=== PATIENT | female | born 1930 | race Caucasian/White ===

== ENCOUNTER → 2016-08-03 | Outpatient (CLI) | payer MEDICARE, BC ==
--- NOTE | 2016-08-04 07:23 | WWHP ---
DATE OF SERVICE: 08/03/2016 CHIEF COMPLAINT: The patient is here for her routine gynecologic exam and mammogram. HPI: This is an 85-year-old G5, P5 with an LMP of 1973, who is status post SATURNINO/BSO in 2007 for stage IB grade 3 uterine cancer. She is without gynecologic complaints. PAST MEDICAL HISTORY: Endometrial uterine cancer in 2007 and a status post SATURNINO/BSO with radiation therapy. Also history of chronic hypertension, elevated cholesterol and TMJ. MEDICATIONS: 1. Lipitor 5 mg daily. 2. Aspirin 81 mg daily. 3. Hyzaar 1 mg daily. 4. VESIcare 1 daily. ALLERGIES: No known drug allergies. 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 Family history is unchanged from the 2015 H&P. SOCIAL HISTORY: She denies tobacco, alcohol, and drug use. She has been since 1981 and is retired. REVIEW OF SYSTEMS: Weight has been stable. She denies respiratory or cardiac problems. GI: Occasional constipation. She denies maltreatment. She states she occasionally has lost her balance and fallen because of this. : She continues to have some bladder issues with urinary leakage and sees Dr. Fay, the urologist for this. PHYSICAL EXAM: Blood pressure 168/74. Height 5 feet 2 inches. Weight 138 pounds. Temperature 97.8, pulse 72. This is a well-developed, well-nourished white female who is alert and oriented x3 in no acute distress. HEENT is within normal limits. NECK: Supple without mass or thyromegaly. CHEST AND LUNGS: Clear to auscultation. HEART: Regular rate. The rhythm is regular except for one added beat consistent with a PVC over about a 15 second period. She is going Through a cardiac workup with Dr. Angel. Breast exam is negative for mass or tenderness. Axillary exam is negative for adenopathy. BACK: Negative for CVA tenderness. ABDOMEN: Soft, nontender, without palpable masses. PELVIC EXAM: External genitalia reveals moderate atrophy without lesions. Vagina reveals moderate to severe atrophy with shortening of the vagina. The vaginal length is about 8 to 9 cm. There are no lesions noted, cuff is well supported. There is no evidence of prolapse. Bimanual exam is negative for mass or tenderness. Rectovaginal exam is negative for mass or tenderness and is negative for occult blood. EXTREMITIES: Nontender. IMPRESSION: An 85-year-old menopausal female, status post total abdominal hysterectomy/bilateral salpingo-oophorectomy for stage IB grade 3 cancer in 2007. There is no evidence of recurrence. PLAN: 1. Pap smear of the vaginal cuff was performed. 2. Self breast examination was discussed. 3. Mammogram will be done today. 4. I have recommended screening colonoscopy since she has never had this done. Dr. Garcias's card was given to the patient for this. 5. We have discussed her occasional loss of balance and falling. I have advised her to follow up with her primary care physician and to talk to him about possible neurology referral. 6. Osteoporosis prevention was discussed. She states her last bone density test was about 10 years ago. An order slip was given to her for a bone density test. 7. 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 8. She will return in one year. GOPI
--- NOTE | 2016-08-05 10:43 | MM ---
Reason for exam: screening (asymptomatic). Last mammogram was performed 1 year ago. History: Patient is postmenopausal and has history of other cancer at age 76. Family history of breast cancer in daughter at age 39. Physical Findings: A clinical breast exam by your physician is recommended on an annual basis and results should be correlated with mammographic findings. MG 3D Screening Mammo W/Cad Bilateral CC and MLO view(s) were taken. Prior study comparison: July 30, 2015, bilateral MG 3d screening mammo w/cad. February 26, 2013, mammogram, performed at [facility]. The breast tissue is heterogeneously dense. This may lower the sensitivity of mammography. Finding: There is a typically benign equal density (isodense), indistinct irregular mass in the upper outer quadrant, subareolar position of the right breast. Previous mammotome biopsy in the right breast. ASSESSMENT: Probably benign, BI-RAD 3 RECOMMENDATION: Follow-up diagnostic mammogram of the right breast in 6 months.
== END | disposition home or self-care (01) ==
LOC: WWCWWP 11:29
PROVIDERS: ATTEND Obstetrics & Gynecology
DX: Z12.31 Encounter for screening mammogram for malignant neoplasm of breast (principal)
CPT/HCPCS: 77063; G0202

== ENCOUNTER → 2017-02-15 | Outpatient (CLI) | payer MEDICARE, BC ==
--- NOTE | 2017-02-15 13:49 | MM ---
Reason for exam: follow-up at short interval from prior study. Last mammogram was performed 6 months ago. History: Patient is postmenopausal and has history of other cancer at age 76. Family history of breast cancer in daughter at age 39. Physical Findings: Nurse did not find any significant physical abnormalities on exam. MG 3D Diag Mammo W/Cad RT CC and MLO view(s) were taken of the right breast. Prior study comparison: August 03, 2016, bilateral MG 3d screening mammo w/cad. July 30, 2015, bilateral MG 3d screening mammo w/cad. There are scattered fibroglandular densities. Previous mammotome biopsy within the right breast. The questioned focal asymmetry anterior upper outer quadrant is less defined from 08/03/16. Additional 6 month follow up is recommended. These results were verbally communicated with the patient and result sheet given to the patient on 02/15/17. ASSESSMENT: Probably benign, BI-RAD 3 RECOMMENDATION: Follow-up diagnostic mammogram of both breasts in 6 months. Back on schedule.
== END | disposition home or self-care (01) ==
LOC: RADMAMWWP 12:49
PROVIDERS: ATTEND Obstetrics & Gynecology
DX: R92.8 Other abnormal and inconclusive findings on diagnostic imaging of breast (principal)
CPT/HCPCS: G0206; G0279

== ENCOUNTER → 2017-08-16 | Outpatient (CLI) | payer MEDICARE, BC ==
[2017-08-16 11:29] VITALS: BP 138/73; PULSE 77; RESP 18; TEMP 97.9; BMI 25.2
--- NOTE | 2017-08-16 12:00 | P.HPOB ---
History of Present Illness H&P Date: 08/16/17 Chief Complaint: The patient is here for her routine gynecologic exam and mammogram. This is an 86-year-old with an LMP of 1972. She is status post SATURNINO BSO in 2007 for stage IB grade 3 uterine cancer. She is without gynecologic complaints. Review of Systems Weight has been stable. She denies respiratory, cardiac and G.I. problems. She denies maltreatment. She has fallen about 3 times this year. She has had issues with occasional loss of balance. : she she does have urinary leakage with sneezing. She has seen Dr. Morales for this. Past Medical History Past Medical History: Cancer (Endometrial cancer stage IB grade 3 in 2007.), Hyperlipidemia, Hypertension Additional Past Medical History / Comment(s): endometrial cancer. TMJ. 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 She has no history of STDs. History of Any Multi-Drug Resistant Organisms: None Reported Past Surgical History: Bowel Resection, Hysterectomy (SATURNINO BSO in 2007) Additional Past Surgical History / Comment(s): mastoidectomy. Oral surgery. Past Anesthesia/Blood Transfusion Reactions: No Reported Reaction Smoking Status: Never smoker Past Alcohol Use History: None Reported Past Drug Use History: None Reported Additional History: She has been since 1981 and is retired. - Past Family History Father Family Medical History: Cancer (colon) Additional Family Medical History / Comment(s): colon CA Daughter(s) History Unknown: Yes Family Medical History: Cancer (Breast and uterine) Additional Family Medical History / Comment(s): Breast Cancer Mother Family Medical History: Myocardial Infarction ([place]) Medications and Allergies Home Medications Medication Instructions Recorded Confirmed Type Aspirin [Children's Aspirin] 81 mg PO DAILY 08/16/17 08/16/17 History Atorvastatin [Lipitor] 10 mg PO HS 08/16/17 08/16/17 History Losartan/Hydrochlorothiazide 1 each PO DAILY 08/16/17 08/16/17 History [Hyzaar 100-12.5 Tablet] Allergies Allergy/AdvReac Type Severity Reaction Status Date / Time No Known Allergies Allergy Verified 08/16/17 11:55 Exam - Vital Signs Vital signs: Vital Signs Temp Pulse Resp BP 08/16/17 11:15 97.9 F 77 18 138/73 Intake and Output 08/15/17 08/16/17 08/16/17 22:59 06:59 14:59 Other: Weight 62.596 kg Height 5'2", BMI 25.2. This is a well-developed well-nourished white female who is alert and oriented times 3 in no acute distress. HEENT: Within normal limits. NECK: Supple without mass or thyromegaly. CHEST AND LUNGS: Clear to auscultation. HEART: Irregularly irregular rhythm. BREASTS: Are without mass or discharge. AXILLARY EXAM: Negative for adenopathy. BACK: Negative for CVA tenderness. ABDOMEN: Soft, nontender, without palpable masses. PELVIC EXAM: External genitalia appears normal with moderate atrophy. Vagina appears normal with moderate atrophy. There is shortening of the vagina length is approximately 7 cm. There is no evidence of prolapse. Bimanual examination is negative for mass or tenderness. RECTAL EXAM: Rectovaginal exam is negative for mass or tenderness and is negative for occult blood. EXTREMITIES: Nontender. IMPRESSION: 1. 86-year-old menopausal female status post SATURNINO BSO for endometrial cancer stage IB grade 3 in 2007. There is no evidence of recurrence. 2. Irregularly irregular heartbeat, possible atrial fibrillation. PLAN: 1. Pap smear was deferred. This will be done every 2 years because of her history of endometrial cancer. Last year's Pap smear was negative. 2. Self breast awareness was discussed. 3. Diagnostic mammogram will be done today because of her previous abnormal mammogram. 4. 12 lead EKG will be done today and her potline monitor, Dr. Angel will be notified. 5. I have recommended screening colonoscopy since she has never had this done. She will discuss this with her primary care physician. She has refused this in the past. 6. She will discuss her episodes of falling and loss of balance with her primary care physician. She understands that the irregular heartbeat noted today can possibly be related to this. 7. She will return in one year.
--- NOTE | 2017-08-16 13:11 | P.PN ---
Progress Note - Text Progress Note Date: 08/16/17 An irregular heart rhythm was noted at the patient's annual exam today. EKG was done. The EKG showed sinus rhythm with frequent and consecutive PVCs and fusion complexes with a left bundle branch block. The EKG was faxed to Dr. 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 I spoke with Dr. Angel by phone and he has asked that she go to his office now for additional testing. This was explained to the patient who states she will go there now. She is currently alert and oriented and asymptomatic.
--- NOTE | 2017-08-19 13:46 | MM ---
Reason for exam: follow-up at short interval from prior study. Last mammogram was performed 6 months ago. History: Patient is postmenopausal and has history of other cancer at age 76. Family history of breast cancer in daughter at age 39. Physical Findings: Dr. Cortez did not find any significant physical abnormalities on exam. MG 3D Diag Mammo W/Cad BRANDON Bilateral CC and MLO view(s) were taken. XCCL view(s) were taken of the left breast. Prior study comparison: February 15, 2017, right breast MG 3d diag mammo w/cad RT. August 03, 2016, bilateral MG 3d screening mammo w/cad. There are scattered fibroglandular densities. Previous mammotome biopsy in the right breast. Lateral subareolar asymmetry right CC view is unchanged for a year. An additional 1 year diagnostic follow up is recommended. (for a total of 2 year follow up). Otherwise, no significant change. These results were verbally communicated with the patient and result sheet given to the patient on 08/16/17. ASSESSMENT: Probably benign, BI-RAD 3 RECOMMENDATION: Follow-up diagnostic mammogram of both breasts in 1 year.
== END | disposition home or self-care (01) ==
LOC: WWCWWP 10:14
PROVIDERS: ATTEND Obstetrics & Gynecology
DX: R92.8 Other abnormal and inconclusive findings on diagnostic imaging of breast (principal); I49.9 Cardiac arrhythmia, unspecified
CPT/HCPCS: 77066; 93005; G0279; 77062

== ENCOUNTER → 2018-10-24 | Outpatient (CLI) | payer MEDICARE, BC ==
[2018-10-24 12:55] VITALS: BP 158/57; PULSE 59; RESP 18; TEMP 98.1; BMI 25.7
--- NOTE | 2018-10-24 13:45 | P.HPOB ---
History of Present Illness H&P Date: 10/24/18 Chief Complaint: The patient is here for her routine gynecologic exam and ma mmogram. This is an 87-year-old within LMP of 1972. The patient is status post SATURNINO BSO and radiation in 2007 for stage IB grade 3 uterine cancer. The patient is without gynecologic complaints. Review of Systems She's gained 3 pounds over the last year. She denies respiratory, cardiac and G.I. problems. She denies maltreatment or problems with falling. : she continues to have urinary leakage that requires her to wear pad. She has seen Dr. Fay, the urologist for this in the past. Past Medical History Past Medical History: Atrial Fibrillation, Cancer, Hyperlipidemia, Hypertension Additional Past Medical History / Comment(s): endometrial cancer stage 1B grade 3 in 2007. TMJ. 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 She has no history of STDs. History of Any Multi-Drug Resistant Organisms: None Reported Past Surgical History: Bowel Resection, Hysterectomy Additional Past Surgical History / Comment(s): mastoidectomy. Oral surgery. SATURNINO BSO in 2007. Past Anesthesia/Blood Transfusion Reactions: No Reported Reaction Past Psychological History: Depression Additional Psychological History / Comment(s): last winter Smoking Status: Never smoker Past Alcohol Use History: None Reported Past Drug Use History: None Reported Additional History: She has been since 1981 and is retired. - Past Family History Father Family Medical History: Cancer Additional Family Medical History / Comment(s): colon CA Daughter(s) History Unknown: Yes Family Medical History: Cancer Additional Family Medical History / Comment(s): Breast Cancer Mother Family Medical History: Myocardial Infarction ([place]) Medications and Allergies Home Medications Medication Instructions Recorded Confirmed Type Atorvastatin [Lipitor] 10 mg PO HS 08/16/17 10/24/18 History Losartan/Hydrochlorothiazide 1 each PO DAILY 08/16/17 10/24/18 History [Hyzaar 100-12.5 Tablet] Allergies Allergy/AdvReac Type Severity Reaction Status Date / Time No Known Allergies Allergy Verified 10/24/18 12:55 Exam Vital Signs Temp Pulse Resp BP Pulse Ox 10/24/18 12:41 98.1 F 59 L 18 158/57 97 Intake and Output 10/23/18 10/24/18 10/24/18 22:59 06:59 14:59 Other: Weight 63.957 kg Height 5'2", weight 141 pounds, BMI 25.8. This is a well-developed well-nourished white female who is alert and oriented times 3 in no acute distress. HEENT: Within normal limits. NECK: Supple without mass or thyromegaly. CHEST AND LUNGS: Clear to auscultation. HEART: Regular rate and rhythm. BREASTS: Are without mass or discharge. AXILLARY EXAM: Negative for adenopathy. BACK: Negative for CVA tenderness. ABDOMEN: Soft, nontender, without palpable masses. PELVIC EXAM: External genitalia appears normal with moderate atrophy. Vagina appears normal with moderate atrophy. Vagina is somewhat shortened consistent with her previous radiation therapy. There is no evidence of prolapse. Bimanual examination is negative for mass or tenderness. RECTAL EXAM: Rectovaginal exam is negative for mass or tenderness and is negative for occult blood. EXTREMITIES: Nontender. IMPRESSION: 1. 87-year-old menopausal female status post SATURNINO BSO and radiation therapy for endometrial cancer stage IB grade 3 in 2007. There is no evidence of recurrence at this time. PLAN: 1. Pap smear of the vaginal cuff was performed. This will be done approximately every 2 years because of her history of endometrial cancer. 2. Self breast awareness was discussed with the patient. 3. Screening mammogram will be done today. 4. She does get flu shots in the fall. 5. She will return in one to 2 years for her well woman examination.
--- NOTE | 2018-10-26 11:52 | MM ---
Reason for exam: screening (asymptomatic). Last mammogram was performed 1 year and 2 months ago. History: Patient is postmenopausal and has history of other cancer at age 76. Family history of breast cancer in daughter at age 39. Physical Findings: A clinical breast exam by your physician is recommended on an annual basis and results should be correlated with mammographic findings. MG 3D Screening Mammo W/Cad Bilateral CC and MLO view(s) were taken. Prior study comparison: August 16, 2017, bilateral MG 3d diag mammo w/cad BRANDON. February 15, 2017, right breast MG 3d diag mammo w/cad RT. The breast tissue is heterogeneously dense. This may lower the sensitivity of mammography. There are benign appearing vascular calcifications bilaterally. No significant changes when compared with prior studies. ASSESSMENT: Benign, BI-RAD 2 RECOMMENDATION: Routine screening mammogram of both breasts in 1 year.
== END | disposition home or self-care (01) ==
LOC: WWCWWP 12:32
PROVIDERS: ATTEND Obstetrics & Gynecology
DX: Z12.31 Encounter for screening mammogram for malignant neoplasm of breast (principal)
CPT/HCPCS: 77063; 77067